=== PATIENT | female | born 1990 | race Caucasian/White ===

== ENCOUNTER 2017-12-14 16:57 | Emergency (ER) | payer OTHER ==
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
[2017-12-14 17:55] VITALS: BP 117/74
== END 2017-12-14 18:12 | disposition home or self-care (01) ==
DX: S16.1XXA Strain of muscle, fascia and tendon at neck level, initial encounter (principal); V49.60XA Unspecified car occupant injured in collision with unspecified motor vehicles in traffic accident, initial encounter; Y92.410 Unspecified street and highway as the place of occurrence of the external cause; Y93.9 Activity, unspecified; Y99.9 Unspecified external cause status